=== PATIENT | male | born 1940 | race Caucasian/White ===

== ENCOUNTER 2019-01-25 07:48 | Outpatient (CLI) | payer MEDICARE, BC ==
[2019-01-25] MEDS ORDERED: REGADENOSON 0.4 MG/5 ML DISP.SYRIN IVP ONE (09:00)
== END 2019-01-25 23:59 | disposition home or self-care (01) ==
LOC: NM 07:48
PROVIDERS: ATTEND Internal Medicine Interventional Cardiology
DX: R07.9 Chest pain, unspecified (principal); I10 Essential (primary) hypertension
CPT/HCPCS: 78452; A9502; J2785